=== PATIENT | female | born 1945 | race Caucasian/White ===

== ENCOUNTER → 2021-06-12 10:44 | Outpatient (CLI) | payer OTHER, SELFPAY ==
[2021-06-12 14:45] LABS: COVID19 -Nasal RAPID Negative (Negative)
== END ==
PROVIDERS: PCP Family Medicine; Visit Provider Family Medicine Sleep Medicine
DX: Z20.822 Contact with and (suspected) exposure to COVID-19 (principal)
CPT/HCPCS: 87635; C9803

== ENCOUNTER 2021-06-14 12:29 | Day surgery (SDC) | payer OTHER, SELFPAY ==
[2021-04-26 09:49] VITALS: BMI 28.5
[2021-06-14] VITALS (15 sets, daily range): BP systolic 92–171; BP diastolic 49–84; PULSE 80–104; RESP 11–20; TEMP 36.4–36.9; O2SAT 93–97; BMI 28.5
--- NOTE | 2021-06-14 | DI.RAD.S_ITS ---
PROCEDURE: XR LUMBAR SPINE 2-3V INDICATIONS: L3-4 TLIF TECHNIQUE: 2 views of the lumbar spine were acquired. COMPARISON: [facility] [place], [place], XR LUMBAR SPINE WITH OLBIQUES PLUS FLEXION EXTENSION, 02/27/2021, 8:36. FINDINGS: 2 intraoperative fluoroscopic images demonstrate posterior/interbody fusion at the presumed L3-L4 level with posterior fixation rods and screws in expected position as well as intervertebral disc spacer. Prior vertebral augmentation L3-2. IMPRESSION: Limited exam demonstrating posterior/interbody fusion at the presumed L3-L4 level. Dictated by: Victor Hugo Beck RR Interpreted: Angel Khan MD on 06/14/2021 at 16:58 Transcribed by: ZULEMA on 06/14/2021 at 16:59 Approved by: Angel Khan M.D. on 06/14/2021 at 17:29
--- NOTE | 2021-06-14 13:32 | SUR.OPER ---
Prone on spine table, head in foam head support, padded chest and pelvic supports, gel pad at knees, lower legs supported by pillows; nipples, genitalia and toes free of pressure, arms secured on foam padded arm boards at <90 degrees abduction. Tape over blanket at thigh secured to table.
[2021-06-14] MEDS: LACTATED RINGERS 1,000 ML 42 ML IV ×2 (13:54→16:48)
--- NOTE | 2021-06-14 13:54 | PM.CN ---
History of Present Illness Consult details Chief complaint: TLIF *OPB* Narrative: Meds Home Medications and Allergies Home Medications Medication Instructions Recorded Confirmed Type amlodipine 5 mg tablet 5 mg PO DAILY 04/26/21 06/14/21 History cetirizine 10 mg tablet 10 mg PO DAILY 04/26/21 06/14/21 History clonazepam 0.5 mg tablet 0.5 mg PO BEDTIME PRN 04/26/21 06/14/21 History diphenhydramine 25 2 tab PO BEDTIME PRN 04/26/21 06/14/21 History mg-acetaminophen 500 mg tablet (Acetaminophen PM) duloxetine 60 mg capsule,delayed 60 mg PO DAILY 04/26/21 06/14/21 History release loperamide 2 mg tablet 2 mg PO Q4H PRN 04/26/21 06/14/21 History oxycodone-acetaminophen 5 mg-325 1 tab PO TID 04/26/21 06/14/21 History mg tablet pantoprazole 40 mg tablet,delayed 40 mg PO DAILY 04/26/21 06/14/21 History release sennosides 8.6 mg capsule (senna) 8.6 mg PO DAILY PRN 04/26/21 04/26/21 History Allergies Allergy/AdvReac Type Severity Reaction Status Date / Time Penicillins AdvReac Intermediate Hyperventil Verified 06/14/21 13:20 ation Exam Vital Signs (past 8 hours): - 06/14/21 13:32 Temperature 97.5 F L Pulse Rate 80 Respiratory Rate 20 Blood Pressure 171/82 H Pulse Oximetry 97 Oxygen Delivery Method Room Air [facility] Medical History (Updated 04/26/21 @ 10:21 by Micaela Hensley RN) BCC (basal cell carcinoma), face Easy bruisability Fibromyalgia GI bleed (2020) Heart murmur HTN (hypertension) Lumbar radiculopathy MAXINE (obstructive sleep apnea) Spinal stenosis Surgical History (Updated 04/26/21 @ 10:21 by Micaela Hensley RN) History of colonoscopy (2020) History of uvulopalatopharyngoplasty Hx of cholecystectomy Hx of foot surgery Hx of hemorrhoidectomy Hx of kyphoplasty Hx of sinus surgery Hx of tonsillectomy Social History household members: significant other Tobacco & Substance Use Smoking Status: Current every day smoker alcohol intake: current Assessment & Plan Time Spent With Patient Critical Care time: I spent a total of [] minutes of critical care time on this patient's care today; this time is exclusive of procedural time.
[2021-06-14] MEDS: ACETAMINOPHEN 325 MG TABLET 975 MG PO (13:57)
[2021-06-14] MEDS: CEFAZOLIN 2 GM/20 ML SYRINGE IV (14:24)
[2021-06-14] MEDS: BUPIVACAINE 0.25% (PF) 30 ML, EPINEPHrine 0.15 MG INJ (14:35)
[2021-06-14] MEDS: BUPIVACAINE LIPOSOME 266 MG/20 ML VIAL INJ (14:55)
--- NOTE | 2021-06-14 16:25 | PM.OP.1 ---
Operative Date/Time/Diagnoses Date of procedure: 06/14/21 Time of procedure: 13:00 Pre-op diagnosis: 1. L3-4 spinal stenosis with neurogenic claudication 2. Lumbar spondylosis with radiculopathy Post-op diagnosis: same Procedure & Clinicians Procedure: 1. L3-4 Postero-lateral and posterior interbody fusion 2. L3-4 interbody cage placement. 3. L3-4 decompressive laminectomy with bilateral facetecomies 4. L3-4 Posterior non-segmental instrumentation 5. [place] of bone marrow from iliac crest 6. Utilization of microsurgical technique and operating microscope Same procedure as scheduled: Yes Indications: Patient has been having chronic back pain and worsening lumbar radiculopathy. Patient failed multiple conservative management with worsening pain weakness and numbness in her lower extremity. Patient has been having difficulty performing activity of daily living. After discussing risks benefits of treatment options, patient elected proceed with surgery. Surgeon: Valentine Luevano [employer] Specialist: Zo Gray Click Yes if Unassisted: No Anesthesia Type: General Operative Notes Closure Type: primary Specimen(s): none sent Prosthetic devices, grafts, tissues, transplants, or devices: Globus revolve screws, Rise cage Estimated Blood Loss (mL): 50 Blood products transfused: none Procedure in detail: Patient was seen in the preoperative area. Risks and benefits of the surgery was discussed with the patient. Informed consent was obtained from the patient and placed in the chart. Surgical site was marked. Patient was taken to the operative room. General anesthesia was administered. Prophylactic antibiotic was given to the patient less than 30 min before the incision was made. Patient was placed into a prone position on the Edmundo table. Patient's back was then prepped and draped in the sterile fashion. Time-out was performed at this time. Using AP and lateral C-arm imaging the interval between L3-4 was identified and marked on patient's back. A 2 inch incision 2 in from midline was made on the right side first. The fascia was incised in line with skin incision. Globus MARS retractors was placed inside the incision and docked onto the L3 lamina. Using microsurgical technique and operating microscope, a L3 laminectomy and L3-4 facetectomy was performed using a Kerrison rongeur. The disc space at L3-4 was identified. And a total diskectomy was performed at L3-4 level. The endplates were decorticated using a rasp and shaver. The total diskectomy and decortication was performed at L3-4 level in order to to accomplish a L3-4 fusion. The local bone from the laminectomy and facetectomy was saved for local bone grafting. After the total diskectomy and decortication was completed, Globus Trifecta bone graft material was combined with local bone that was harvested earlier. At this time, a separate skin is incision was made over the iliac crest. A Jamshidi needle was inserted into the iliac crest through a separate skin incision. 5 cc of bone marrow aspiration was obtained through the separate skin incision using a Jamshidi needle from the iliac crest. The bone marrow aspiration was combined with local bone and the Trifecta bone grafting material. The bone grafting material was placed into the L3-4 interbody space along with a expandable cage. The cage was expanded to its maximum height using the torque limiting screwdriver. At this time a mirror image incision was made on the left side. The fascia was incised in line with the skin incision. Globus MARS retractor was inserted and docked onto the L3-4 posterolateral gutter. Using the power drill, posterior-lateral decortication was performed at L3-4 level until bleeding cortical bone was identified. The remaining bone grafting material was placed into the L3-4 posterior lateral gutter he order to accomplish posterolateral fusion at the L3-4 level. Using the double C-arm technique, pedicle screws were placed into the L3-4 pedicles bilaterally. This was done by placing the Jamshidi needle into the pedicles, then placing the guidewires over the Jamshidi needle, and finally placing the cannulated screws over the guidewires bilaterally. After the pedicle screws were placed, 2 titanium rods was locked into the heads of the pedicle screws using locking caps and torque limiting screwdriver. After all the hardware was placed, and confirmed with AP and lateral C-arm imaging, the wound was then irrigated with sterile normal saline and packed with Ray-Kevon gauze for 3 min to accomplish hemostasis. After the gauze was removed the deep fascia was closed with #1 Vicryl suture. The subcutaneous layer was closed with 2-0 Vicryl. The skin was closed with skin luda. Patient tolerated the procedure well. There were no complications. Complications: none Post-operative Condition: stable Disposition: PACU Plan for aftercare: Admit to inpatient hospital
[2021-06-14] MEDS: HYDROMORPHONE 2 MG INJ IV ×5 (16:43→17:14)
--- NOTE | 2021-06-14 17:02 | SUR.PHASEI ---
Report given to Jerri Martins RN
[2021-06-14] MEDS: hydrOXYzine 50 MG/ML INJ 25 MG IM (17:10)
--- NOTE | 2021-06-14 17:25 | SUR.PHASEI ---
Hand off to Gayb Jeffries RN with unopened vial of lorazepam and 0.5 ml (1g) dilaudid. Report given. Patient continues to be in pain, states that we are making improvement on it. Steffi Jesus RN continues to document patient care.
[2021-06-14] MEDS: OXYCODONE IR 5 MG TABLET PO (17:29)
--- NOTE | 2021-06-14 17:36 | SUR.PHASEI ---
Report to Didier Jeffries RN
[2021-06-14] MEDS: SODIUM CHLORIDE 0.9% 1,000 ML 100 ML IV (18:33)
[2021-06-14] MEDS: SENNOSIDES 8.6 MG TABLET 17.2 MG PO (21:01)
[2021-06-14] MEDS: DOCUSATE 100 MG CAPSULE PO (21:01)
[2021-06-14] MEDS: ACETAMINOPHEN 325 MG TABLET 650 MG PO (21:10)
[2021-06-14] MEDS: clonazePAM 0.5 MG TABLET PO (21:11)
[2021-06-14] MEDS: HYDROMORPHONE 0.5 MG INJ IV (21:11)
[2021-06-14] MEDS: CLINDAMYCIN 900 MG/50 ML PIGGYBACK 50 MG IV (21:12)
[2021-06-15 04:00] VITALS: BP 162/70; PULSE 88; RESP 18; TEMP 36.8; O2SAT 98
[2021-06-15] MEDS: ACETAMINOPHEN 325 MG TABLET 650 MG PO ×2 (04:00→11:19)
[2021-06-15] MEDS: OXYCODONE IR 10 MG TABLET PO ×2 (04:00→08:42)
--- NOTE | 2021-06-15 05:34 | PC.NURSE ---
Pt alert and oriented x 4, complains of pain. Dilaudid and Tylenol given for pain with good results. Small amount of drainage on dressing (size of quarter). Pt able to urinate x 2 this shift with total of 300ml output. Bladder scan done x 3.
[2021-06-15] MEDS: SODIUM CHLORIDE 0.9% 1,000 ML 100 ML IV (05:44)
[2021-06-15] MEDS: CLINDAMYCIN 900 MG/50 ML PIGGYBACK 50 MG IV (05:57)
[2021-06-15] MEDS: DOCUSATE 100 MG CAPSULE PO (08:41)
[2021-06-15] MEDS: AMLODIPINE 5 MG TABLET PO (08:41)
[2021-06-15] MEDS: LORATADINE 10 MG TABLET PO (08:42)
[2021-06-15] MEDS: PANTOPRAZOLE DR 40 MG TABLET PO (08:42)
[2021-06-15] MEDS: DULOXETINE 30 MG CAPSULE 60 MG PO (08:42)
--- NOTE | 2021-06-15 08:42 | P.DS_ITS ---
History of Present Illness History of Present Illness Date Patient Seen: 06/15/21 Time Patient Seen: 07:00 Chief complaint: TLIF *OPB* Narrative: Operative Date/Time/Diagnoses Date of procedure: 06/14/21 Time of procedure: 13:00 Pre-op diagnosis: 1. L3-4 spinal stenosis with neurogenic claudication 2. Lumbar spondylosis with radiculopathy Post-op diagnosis: same Procedure & Clinicians Procedure: 1. L3-4 Postero-lateral and posterior interbody fusion 2. L3-4 interbody cage placement. 3. L3-4 decompressive laminectomy with bilateral facetecomies 4. L3-4 Posterior non-segmental instrumentation 5. [place] of bone marrow from iliac crest 6. Utilization of microsurgical technique and operating microscope Same procedure as scheduled: Yes Indications: Patient has been having chronic back pain and worsening lumbar radiculopathy. Patient failed multiple conservative management with worsening pain weakness and numbness in her lower extremity.? Patient has been having difficulty performing activity of daily living.? After discussing risks benefits of treatment options, patient elected proceed with surgery. Surgeon: Valentine Luevano Hand Stonecutter: Zo Gray Click Yes if Unassisted: No Anesthesia Type: General Operative Notes Closure Type: primary Specimen(s): none sent Prosthetic devices, grafts, tissues, transplants, or devices: Globus revolve screws, Rise cage Estimated Blood Loss (mL): 50 Blood products transfused: none Discharge Providers Provider Date of admission: 06/14/2021 Discharge Date: 06/15/21 Primary care physician: Ronak Vasquez MD Consults: 06/14/21 18:01 Consult to Occupational Therapy Evaluate & Treat Comment: Physician Instructions: Evaluate and treat Consult to Physical Therapy Evaluate & Treat Comment: Physician Instructions: Evaluate and Treat Discharge provider: Zo Gray PA-C Summary Hospital Course Discharge Diagnosis: s/p lumbar fusion Hospital Course: Ms Atkins's hospital course was remarkable for urinary retention, which had resolved by the morning of POD# 1, at which time she was voiding without difficulty. She complained of pain in her back about her incisions, but no leg pain. She was eating without difficulty. She has help at home from her roommate, Bharagv, and also has access to a walker. She was evaluated by PT prior to discharge. Exam Vital Signs (past 8 hours): - 06/15/21 04:00 Temperature 98.2 F Pulse Rate 88 Respiratory Rate 18 Blood Pressure 162/70 H Pulse Oximetry 98 Oxygen Delivery Method Nasal Cannula Oxygen Flow Rate 2 Narrative Exam Narrative: 5/5 strength in hip flexors, quadriceps, hamstrings, DF, PF, EHL bilaterally. Sensation to light touch intact throughout BLE. Calves soft, compressible, nontender and without palpable cords or masses. Dressing saturated with bloody drainage and changed; no active drainage. Const General: cooperative and healthy appearing Orientation: alert, awake and oriented x3 ON LICENSE OF [facility] Medical History (Updated 04/26/21 @ 10:21 by Micaela Hensley RN) BCC (basal cell carcinoma), face Easy bruisability Fibromyalgia GI bleed (2020) Heart murmur HTN (hypertension) Lumbar radiculopathy MAXINE (obstructive sleep apnea) Spinal stenosis Surgical History (Updated 06/15/21 @ 08:38 by Zo Gray PA-C) History of colonoscopy (2020) History of uvulopalatopharyngoplasty Hx of cholecystectomy Hx of foot surgery Hx of hemorrhoidectomy Hx of kyphoplasty Hx of sinus surgery Hx of tonsillectomy Social History household members: significant other Smoking Status: Current every day smoker alcohol intake: current Discharge Assessment & Plan Assessment and Plan Assessment: POD# 1 s/p L3-4 transforaminal lumbar interbody fusion and posterior instrumentation Plan of Treatment: Discharge home. Multimodal pain control. Follow up in 2 weeks. Discharge Plan Discharge Plan Patient Disposition: Home Discharge orders & Medications Discharge Orders: Discharge (Order); Ordered 06/15/21 Ordered By: Zo Gray Prescriptions: New acetaminophen 325 mg Tablet 650 mg PO Q6HR PRN (Reason: Pain, Mild (1-3)) Qty: 240 2RF docusate sodium 100 mg Capsule 100 mg PO BID PRN (Reason: constipation) Qty: 60 2RF hydroxyzine pamoate 25 mg Capsule 25 mg PO Q4HR PRN (Reason: muscle spasm) Qty: 120 1RF oxycodone 10 mg Tablet 10 mg PO Q4H PRN (Reason: Pain, Severe (7-10)) Qty: 60 0RF Continued cetirizine 10 mg Tablet 10 mg PO DAILY 0RF clonazepam 0.5 mg Tablet 0.5 mg PO BEDTIME PRN (Reason: Sleep, anxiety) 0RF Rx Instructions: administer 30 minutes before bedtime loperamide 2 mg Tablet 2 mg PO Q4H PRN (Reason: Diarrhea) 0RF Rx Instructions: administer after each loose stool until symptoms controlled; do not exceed 8 mg per 24 hrs amlodipine 5 mg Tablet 5 mg PO DAILY 0RF pantoprazole 40 mg Tablet,Delayed Release (Dr/Ec) 40 mg PO DAILY 0RF diphenhydramine-acetaminophen [Acetaminophen PM] 25-500 mg Tablet 2 tab PO BEDTIME PRN (Reason: Sleep) 0RF senna 8.6 mg Capsule 8.6 mg PO DAILY PRN (Reason: Constipation) 0RF Label Comments: 3 months duloxetine 60 mg Capsule,Delayed Release(Dr/Ec) 60 mg PO DAILY 0RF Discontinued oxycodone-acetaminophen 5-325 mg Tablet 1 tab PO TID 0RF Follow up/Referrals: Valentine Luevano MD [Physician] - As previously scheduled (Follow up with Dr Luevano on 06/29/2021 @ 10:[address] [facility] in [place].) Ronak Vasquez MD [Primary Care Provider] - Diet/Activity/Treatments Diet: Diet as Tolerated Activity: Walk frequently! No deep bending (more than 90 degrees) or twisting at the waist. No lifting > 20 pounds. Skin/Wound/Dressing Care Report to your healthcare provider any signs of infection, such as:: chills, fever, night sweats, increased pain, unusual drainage and unusual redness Dressing: May shower. Keep incisions as dry as possible; change dressing if it becomes wet inside. No bathing or otherwise soaking incisions. No creams, lotions, or ointments on incisions. Visit Report/Discharge Packet Instructions: DI for Transforaminal Lumbar Interbody Fusion Stand Alone Forms: Surgery Discharge Discharge Data Primary Care Provider: Ronak Vasquze Attending Provider: Valentine Luevano
[2021-06-15 09:00] VITALS: BP 155/68; PULSE 85; RESP 18; TEMP 37.1; O2SAT 96
--- NOTE | 2021-06-15 10:05 | PT.IIE ---
Current Diagnoses Radiculopathy, lumbar region (06/14/21) Arthrodesis status (06/14/21) Surgery Performed Operation Date: 06/14/21 14:15 Actual Procedures p L3-4 TLIF - Valentine Luevano MD Medical History (Last Updated 04/26/21 @ 10:21 by Micaela Hensley RN) BCC (basal cell carcinoma), face Easy bruisability Fibromyalgia GI bleed (2020) Heart murmur HTN (hypertension) Lumbar radiculopathy MAXINE (obstructive sleep apnea) Spinal stenosis Physical Therapy Inpatient Evaluation/Re-Eval M1 PT/OT-IP Prior Functional Status Start: 06/15/21 10:45 Freq: NEEDED Status: Discharge Protocol: Document 06/15/21 10:45 [facility] (Rec: 06/15/21 10:59 [facility] [id number]) Medical Review Prior Functional Status Communication Independent Activities of Daily Living and IADL's Pt having apin during ADL and IADL needs. Social History Household Members significant other Living Arrangements House Number of Floors (Floors) One Floor Number of Stairs To Enter/Railing? 2 step and right post that she uses to assist to help. Home Environment Standard Height Toilet,Walk in Shower,Tub/Shower Home Equipment Hand Held Shower,Parts Puller M1 PT/OT-IP Prior Functional Status Start: 06/15/21 13:26 Freq: NEEDED Status: Active Protocol: Document 06/15/21 10:05 DLM (Rec: 06/15/21 13:52 DLM [id number]) Medical Review Prior Functional Status Medical History Reviewed Yes Diet/Fluid Consistency Regular Communication Independent Mobility and Gait Independent Activities of Daily Living and IADL's Pt having pain during ADL and IADL needs before sx secondary to her back, hard to step over tub due to back pain Social History Household Members significant other Living Arrangements House Number of Floors (Floors) One Floor Number of Stairs To Enter/Railing? 2 step and right post that she uses to assist to help. Home Environment Standard Height Toilet,High Toilet,Walk in Shower,Tub/ Shower Home Equipment Hand Held Shower,Parts Puller Additional Social History Comment she reports her SO is getting her a walker before she goes home, she wants a 4WW M2 PT-IP Current Condition Start: 06/15/21 13:26 Freq: NEEDED Status: Active Protocol: Document 06/15/21 10:05 DLM (Rec: 06/15/21 13:52 DL [id number]) Physical Therapy Current Condition Current Condition Evaluation Date 06/15/21 Treatment Diagnosis TLIF L3-4 Onset Date 06/14/21 M3 PT-IP Subjective Start: 06/15/21 13:26 Freq: NEEDED Status: Active Protocol: Document 06/15/21 10:05 DLM (Rec: 06/15/21 13:52 [facility] [id number]) Subjective Physical Therapy Visit Type Type Initial Evaluation Visit Start Time 09:00 Visit Stop Time 10:05 Total Visit Minutes 65 Number of MAINTENANCE SUPERVISOR Visits 0 Physical Therapy Visit Comments Patient Comments She feels safe to go home today Patient Goals she wants to discharge home Therapy Pain Assessment Pain When Pain Assessed During Mobility Pain Present Pain Present Pain Reported Location Lower Back Intensity 3 Scale Used Numeric (0 - 10) Description Aching,Radiating,With Movement Pain Behaviors Guarding Pain Management Techniques Re-positioning M4 PT-IP Mobility and Gait Start: 06/15/21 13:26 Freq: NEEDED Status: Active Protocol: Document 06/15/21 10:05 DLM (Rec: 06/15/21 13:52 [facility] [id number]) PT-Bed Mobility Assessment Rolling Type of Rolling Log Rolling Level of Assist Standby Assistance Supine to Sit Supine to Sit Standby Assistance Sit to Supine Sit to Supine Standby Assistance Scooting Scooting to Edge of Bed Independent PT-Transfer Assessment Sit to and From Stand Sit to and from Stand Standby Assistance,Use of Upper Extremities Equipment Transfer Assistive Device Gait Belt,Front Wheeled Walker Transfers Transfer Destination Bed,Chair Transfer Technique Stand Step Pivot Transfer Ability Level of Assist Standby Assistance Comments Mobility Comments pt up to recliner this visit, later in visit pt up to toilet but left with OT for training Gait Assessment Gait Gait Assistance Required: Standby Assistance Distance (Feet) 50 Assistive Devices Assistive Device Gait Belt,Front Wheeled Walker Gait Deviations General Gait Pattern Decreased Stride Length,Flexed Trunk Factors Limiting Gait Function Factors Limiting Gait Function Decreased Activity Tolerance, Decreased Strength,Limited Range of Motion,Pain Comments Gait Comments mild flexion over FWW, pt compensating with UE's on FWW Stair Climbing Assessment Evaluation Level of Assist On Stairs Minimal Assistance Devices Stair Climbing Assistive Devices Left Railing Technique/Endurance Stair Climbing Direction Ascend and Descend Stair Climbing Technique Step to Step Number of Steps Climbed 1 Query Text: Stair Climbing Set # Repetitions (reps) 2 Comments Stair Climbing Comments she reports her SO can help her on the steps to get into the house PT-Balance Assessment Sitting Balance and Reactions Static Sitting Balance Ability Good Dynamic Sitting Balance Ability Good Standing Balance and Reactions Static Standing Balance Ability Good Dynamic Standing Balance Ability Good Device Used FWW M5 PT-IP Objective Assessments Start: 06/15/21 13:26 Freq: NEEDED Status: Active Protocol: Document 06/15/21 10:05 DL (Rec: 06/15/21 13:52 [facility] [id number]) Orientation Orientation/Cognition Level of Alertness Alert Orientation Name,Age,Birthday,Month,Date, Year,Day of Week,Place, Situation Language Function Ability No Deficits Noted Safety Awareness Understands Safety Issues Memory Description No Deficits Noted Comments she needs repetition of new information post-op Gross Range of Motion Upper Extremity ROM Assessment Within Functional Limits Lower Extremity ROM Assessment Within Functional Limits Strength Upper Extremity Strength Assessment Within Functional Limits Lower Extremity Strength Assessment Right Impaired Hip flexion 3+/5 with pain Comments Strength Comments trunk ROM and strength limited by pain and post-op precautions Coordination Assessment Gross Coordination Gross Coordination WNL Sensation Assessment Sensation Gross Sensation Right LE Impaired Sensation Description Pain Comments Sensation Comments no numbness/tingling at this time, hypersensative to touch Muscle Tone Muscle Tone WNL Yes M6 PT-IP Treatment Start: 06/15/21 13:26 Freq: NEEDED Status: Active Protocol: Document 06/15/21 10:05 DL (Rec: 06/15/21 13:52 [facility] [id number]) Physical Therapy Treatment Education Education Provided Precautions,Post-Op Packet, Safety Equipment Issued Equipment Type and Company she reports her SO is buying her a walker for home use M7 PT-IP Assessment and Plan Start: 06/15/21 13:26 Freq: NEEDED Status: Active Protocol: Document 06/15/21 10:05 DL (Rec: 06/15/21 13:52 [facility] [id number]) PT Summary Assessment and Plan Potential Rehabilitation Potential Good Status of Condition at Evaluation Evolving Summary Impairments Pain,ROM,Strength,Bed Mobility ,Transfers,Gait,Activity Tolerance Progress Towards Goals Safe For Discharge Assessment Summary Esther is alert and resting in bed post-op day one TLIF. She reports having pain in her back, buttock and groin area today. Her right LE is hypersensative to touch. She needed education for her post- op spine precautions. She shows improved awareness of how to use her precautions functionally after training. She shows good use of the FWW for gait and will need a walker for home use. Stair training completed this visit. She completed her training this visit and appears safe to return home with her SO to assist her. Written education provided to reinforce post-op precautions. Goals Other Goals training completed this visit Frequency of Treatment Frequency Of Treatment Discharge Treatment Plan Physical Therapy Treatment Plan Bed Mobility Training,Transfer Training,Gait Training,Post Op Education,Discharge Planning Other Recommendations and Next Treatment training completed this visit Focus Precautions Lumbar Precautions Log Roll,No Twisting,Limit Bending,Lifting Restriction of 10 lbs,Gait Belt above Incisional Area Recommendations To Nursing Amount of Assist Needed Standby Assistance Discharge Recommendations PT Discharge Recommendations Home Other Discharge Recommendations her SO is planning to assist her at home Transportation Needs at Discharge Private Vehicle
--- NOTE | 2021-06-15 10:37 | OT.IP.EVAL ---
Current Diagnoses Radiculopathy, lumbar region (06/14/21) Arthrodesis status (06/14/21) Surgery Performed Operation Date: 06/14/21 14:15 Actual Procedures p L3-4 TLIF - Valentine Luevano MD Past Medical History (Last Updated 04/26/21 @ 10:21 by Micaela Hensley, RN) BCC (basal cell carcinoma), face Easy bruisability Fibromyalgia GI bleed (2020) Heart murmur History of colonoscopy (2020) History of uvulopalatopharyngoplasty HTN (hypertension) Hx of cholecystectomy Hx of foot surgery Hx of hemorrhoidectomy Hx of kyphoplasty Hx of sinus surgery Hx of tonsillectomy Lumbar radiculopathy MAXINE (obstructive sleep apnea) Spinal stenosis Surgical History (Last Updated 04/26/21 @ 10:21 by Micaela Hensley, RN) History of colonoscopy (2020) History of uvulopalatopharyngoplasty Hx of cholecystectomy Hx of foot surgery Hx of hemorrhoidectomy Hx of kyphoplasty Hx of sinus surgery Hx of tonsillectomy Occupational Therapy Inpatient Evaluation/Re-Eval M1 PT/OT-IP Prior Functional Status Start: 06/15/21 10:45 Freq: NEEDED Status: Active Protocol: Document 06/15/21 10:45 [facility] (Rec: 06/15/21 10:59 [facility] [id number]) Medical Review Prior Functional Status Communication Independent Activities of Daily Living and IADL's Pt having pain during ADL and IADL needs. Social History Household Members significant other Living Arrangements House Number of Floors (Floors) One Floor Number of Stairs To Enter/Railing? 2 step and right post that she uses to assist to help. Home Environment Standard Height Toilet,Walk in Shower,Tub/Shower Home Equipment Hand Held Shower,Lug Breaker And Wire Puller M2 OT-IP Current Condition Start: 06/15/21 10:45 Freq: Status: Active Protocol: Document 06/15/21 10:45 [facility] (Rec: 06/15/21 10:59 [facility] [id number]) Occupational Therapy Current Condition Current Condition Evaluation Date 06/15/21 Treatment Diagnosis S/p L3-4 TLIF Diagnosis Onset Date 06/14/21 Post Operative Precautions Lumbar Precautions Log Roll,No Twisting,Limit Bending,Lifting Restriction of 10 lbs,Gait Belt above Incisional Area M3 OT- IP Subjective and Pain Start: 06/15/21 10:45 Freq: Status: Active Protocol: Document 06/15/21 10:45 [facility] (Rec: 06/15/21 10:59 [facility] [id number]) OT- Subjective Occupational Therapy Visit Type Type Initial Evaluation Visit Start Time 10:10 Visit Stop Time 10:37 Total Visit Minutes 27 Occupational Therapy Visit Comments Patient Comments Pt wanting to get dressed. OT suggested pt's SO to come up to pick her up so able to go through information. Pt states he does not want to come up and will just pick her up at the ER door. Recommended pt show him the paperwork for all back precautions needs. Patient/Caregiver Goals TO go home. OT Pain Assessment Pain When Pain Assessed At Rest Pain Present Pain Present Pain Reported Location Lower Back Intensity 8 M4 OT- IP ADL's Start: 06/15/21 10:45 Freq: Status: Active Protocol: Document 06/15/21 10:45 [facility] (Rec: 06/15/21 10:59 [facility] [id number]) OT ADL-Grooming Comments OT Grooming Comments Not performed. OT ADL-Oral Care Comments Oral Care Comments Not performed. OT ADL-Dressing General Eval Lower Body Dressing Ability Moderate Assistance,Maximum Assistance Areas Needing Assistance Socks,Shoes Comments OT Dressing Comments Pt issued LB dressing equipment of long handled shoe horn, sock aid and long handled sponge. 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 Pt able to use LB dressing equipment to help to get dressed. OT ADL-Toileting General Evaluation Toileting Ability Standby Assistance Comments OT Toileting Comments Pt trying to wipe but tends to twist, suggested that pt has SO help or get a toilet paper aid. OT ADL-Bathing Comments OT Bathing Comments Pt refused. M5 OT- IP IADL's Start: 06/15/21 10:45 Freq: Status: Active Protocol: Document 06/15/21 10:45 [facility] (Rec: 06/15/21 10:59 [facility] [id number]) OT-Instrumental Activities of Daily Living Home Safety Awareness Awareness of Need for Assistance at Home Decreased Awareness Home Safety Comments Pt a bit groggy and not thinking well and would be best for her SO to assist with her needs. M6 OT- IP Functional Cognition Start: 06/15/21 10:45 Freq: Status: Active Protocol: Document 06/15/21 10:45 [facility] (Rec: 06/15/21 10:59 [facility] [id number]) Cognitive Factors Limiting Selfcare Function Cognitive Ability Level of Alertness Alert Ability to Follow Commands Able to Follow One Step Commands with Increased Time, Able to Follow One Step Commands with Repetition Safety Awareness Decreased Recall of Precautions,Decreased Ability to Apply Precautions, Underestimates Need for Assistance Problem Solving Ability Needs Assist to Identify Solutions Cognitive Comments Cognitive Assessment Comments Pt a bit groggy and needing cues for back precautions and safety. OT- Vision and Hearing OT- Hearing Assessment OT- Hearing Assessment WFL M7 OT- IP Mobility and Balance Start: 06/15/21 10:45 Freq: Status: Active Protocol: Document 06/15/21 10:45 [facility] (Rec: 06/15/21 10:59 [facility] [id number]) OT-Transfer Assessment Sit to and From Stand Sit to and from Stand Standby Assistance Transfers Transfer Ability Standby Assistance Technique Transfer Destination Bed,Toilet Transfer Technique Stand Step Pivot Devices Transfer Assistive Devices Gait Belt,Front Wheeled Walker Comments Mobility Comments SBA with FWW. OT- Balance Assessment Sitting Balance and Reactions Static Sitting Balance Ability Good Dynamic Sitting Balance Ability Good Standing Balance and Reactions Static Standing Balance Ability Fair Dynamic Standing Balance Ability Fair M8 OT- IP Objective Assessments Start: 06/15/21 10:45 Freq: Status: Active Protocol: Document 06/15/21 10:45 [facility] (Rec: 06/15/21 10:59 [facility] [id number]) OT Gross Range of Motion Upper Extremity Range of Motion Assessment Within Functional Limits OT-Muscle Tone Assessment Muscle Tone WNL Yes M9 OT- IP Assessment and Plan Start: 06/15/21 10:45 Freq: Status: Active Protocol: Document 06/15/21 10:45 [facility] (Rec: 06/15/21 10:59 [facility] [id number]) OT Summary Assessment and Plan Potential Rehabilitation Potential Good Analytic Complexity at Evaluation Low Summary OT Impairments Pain,Balance,Functional Cognition,Functional Mobility, Dressing,Toileting,Bathing, Toilet Transfers,Shower Transfers Progress Towards Goals Progressing Toward Goals,Slow Progress due to Cognition Assessment Summary Pt low complexity and main barriers are pt is a bit groggy for pain medications and needing vc for safety and back precautions. Pt states her SO to olive picker a FWW, consider getting a shower chair and was issued LB dressing equipment. Pt to go home with 24/7 assist. Goals Grooming Goal Independent Dressing Goal Independent Toileting Goal Independent Bathing Goal Independent Toilet Transfer Goal Independent Shower Transfer Goal Independent Patient/Caregiver Education Goal Demonstrate Post-Op Precautions Days to Meet Goals 3 Frequency of Treatment Frequency Of Treatment Once a Day Treatment Plan OT Treatment Plan ADL Training,Functional Cognition Training,Functional Mobility,Patient/Family Education,Discharge Planning Other Treatment Recommendations and Next shower if still here Treatment Focus Discharge Recommendations OT Discharge Recommendations Home with 24/7 Assist Available Home Equipment Needs Shower chair, FWW Transportation Needs at Discharge Private Vehicle
[2021-06-15] MEDS: hydrOXYzine pamoate 25 MG CAPSULE PO (11:19)
--- NOTE | 2021-06-15 11:45 | PC.NURSE ---
Patient given discharge instruction regarding follow up, activity restrictions and medication. Dressing changed, xeroform, gauze and [place] barrier applied. Patient tolerated. Patient had pulled her own IV out earlier. Denies belongings in the pharmacy or safe. Patient discharged via wheelchair.
--- NOTE | 2021-06-21 13:56 | PM.HP.1 ---
History of Present Illness History of Present Illness Chief complaint: TLIF *OPB* Narrative: Ms. Atkins is a 76 yo F with chronic back pain and symptoms of neurogenic claudication due to severe spinal stenosis. Patient failed over 3 months of conservative care and worsening symptoms. Patient elected to proceed with surgery treatment. Patient History Medical History BCC (basal cell carcinoma), face Easy bruisability Fibromyalgia GI bleed (2020) Heart murmur HTN (hypertension) Lumbar radiculopathy MAXINE (obstructive sleep apnea) Spinal stenosis Surgical History History of colonoscopy (2020) History of uvulopalatopharyngoplasty Hx of cholecystectomy Hx of foot surgery Hx of hemorrhoidectomy Hx of kyphoplasty Hx of sinus surgery Hx of tonsillectomy Family & Social History Social History: household members significant other Prior Living Arrangements House Safety & Behavioral: Feels Safe in Current Yes Environment Been Physically Hurt or No Threatened By a Person Suicidal Ideation Description None Suicide Plan Description No Plan Tobacco & Substance use: Tobacco type cigarettes Smoking Status Current every day smoker alcohol intake current alcohol intake frequency 0-2 drinks per day Substance Use Type marijuana Meds Home Medications and Allergies Home Medications Medication Instructions Recorded Confirmed Type amlodipine 5 mg tablet 5 mg PO DAILY 04/26/21 06/14/21 History cetirizine 10 mg tablet 10 mg PO DAILY 04/26/21 06/14/21 History clonazepam 0.5 mg tablet 0.5 mg PO BEDTIME PRN 04/26/21 06/14/21 History diphenhydramine 25 2 tab PO BEDTIME PRN 04/26/21 06/14/21 History mg-acetaminophen 500 mg tablet (Acetaminophen PM) duloxetine 60 mg capsule,delayed 60 mg PO DAILY 04/26/21 06/14/21 History release loperamide 2 mg tablet 2 mg PO Q4H PRN 04/26/21 06/14/21 History pantoprazole 40 mg tablet,delayed 40 mg PO DAILY 04/26/21 06/14/21 History release sennosides 8.6 mg capsule (senna) 8.6 mg PO DAILY PRN 04/26/21 04/26/21 History acetaminophen 325 mg tablet 650 mg PO Q6HR PRN #240 tab 06/15/21 Rx docusate sodium 100 mg capsule 100 mg PO BID PRN #60 cap 06/15/21 Rx hydroxyzine pamoate 25 mg capsule 25 mg PO Q4HR PRN #120 cap 06/15/21 Rx oxycodone 10 mg tablet 10 mg PO Q4H PRN #60 tab 06/15/21 Rx Allergies Allergy/AdvReac Type Severity Reaction Status Date / Time Penicillins AdvReac Intermediate Hyperventil Verified 06/14/21 13:20 ation Exam Vital Signs (past 8 hours): Oxygen Delivery Method Room Air Oxygen Flow Rate 0 Neuro Other: + straight leg raise to LLE, sensibility decreased to bilateral L3, L4 dermatome, motor strength 4/5 in bilateral quadriceps and TA. Assessment & Plan Assessment & Plan narrative: Patient elected to proceed with surgery treatment. Risks for surgery include but not limited to bleeding, infection, nerve/dura/esophagus/blood vessel/bowel/bladder injury, need for additional procedure, even . Patient understands and would like to proceed with surgery. I scheduled her for L3-4 TLIF. Time Spent With Patient Critical Care time: I spent a total of [] minutes of critical care time on this patient's care today; this time is exclusive of procedural time.
== END 2021-06-15 11:30 | disposition home or self-care (01) ==
LOC: OR 12:34 → AC 12:35
PROVIDERS: PCP Family Medicine; Referring Provider Family Medicine; Visit Provider Orthopaedic Surgery Orthopaedic Surgery of the Spine
PROC: (CPT 22633; principal; 2021-06-14 14:15)
DX: M48.062 Spinal stenosis, lumbar region with neurogenic claudication (principal); M47.26 Other spondylosis with radiculopathy, lumbar region; M79.7 Fibromyalgia; I10 Essential (primary) hypertension; G47.33 Obstructive sleep apnea (adult) (pediatric); F17.210 Nicotine dependence, cigarettes, uncomplicated
CPT/HCPCS: 22633; 63052; 22853; 22840; 20939; 72100; 76000; 82962; 97162; 97165; 97530; 97535; C1713; C9290; J0171; J0330; J0690; J1100; J1170; J2250; J2405; J3010; J3410